=== PATIENT | male | born 1960 | race Caucasian/White ===

== ENCOUNTER 2017-09-13 14:21 | Inpatient (IN) | payer OTHER ==
[2017-09-13] MEDS ORDERED: THIAMINE 100 MG/ML 2 ML VIAL IM STA ×2 (14:38→15:41)
[2017-09-13] MEDS ORDERED: LORazepam 2 MG/ML INJ IV STA ×2 (14:38→15:15)
[2017-09-13] MEDS ORDERED: SODIUM CHLORIDE 0.9% 1,000 ML IV STA ×2 (14:38)
[2017-09-13] MEDS ORDERED: FOLIC ACID 1 MG TAB PO STA (14:38)
[2017-09-13] MEDS ORDERED: MULTIVITAMINS, THERA 1 EACH TAB PO STA (14:38)
[2017-09-13] MEDS ORDERED: PANTOPRAZOLE 40 MG/10 ML VIAL IVP STA (14:39)
[2017-09-13 15:12] LABS: ALT 68 U/L (21-72); AST 174 U/L (17-59); Albumin 3.7 g/dL (3.5-5.0); Alkaline Phosphatase 127 U/L (38-126); Amylase 47 U/L (30-110); Anion Gap 20 mmol/L; Blood Urea Nitrogen 20 mg/dL (9-20); Calcium 8.7 mg/dL (8.4-10.2); Carbon Dioxide 20 mmol/L (22-30); Chloride 100 mmol/L (98-107); Glucose 104 mg/dL (74-99); Lipase 134 U/L (23-300); Potassium 3.7 mmol/L (3.5-5.1); Sodium 140 mmol/L (137-145); Total Bilirubin 1.3 mg/dL (0.2-1.3); Total Protein 6.3 g/dL (6.3-8.2)
[2017-09-13 15:28] LABS: Basophils % (A) 1 %; Eosinophils # (A) 0.1 k/uL (0-0.7); Eosinophils % (A) 2 %; HCT 46.7 % (39.0-53.0); HGB 15.2 gm/dL (13.0-17.5); Lymphocytes # (A) 0.7 k/uL (1.0-4.8); Lymphocytes % (A) 11 %; MCH 34.7 pg (25.0-35.0); MCHC 32.6 g/dL (31.0-37.0); MCV 106.1 fL (80.0-100.0); Macrocytosis Slight; Mean Platelet Volume 7.2; Monocytes # (A) 0.4 k/uL (0-1.0); Monocytes % (A) 5 %; Neutrophils # (A) 5.5 k/uL (1.3-7.7); Neutrophils % (A) 81 %; Platelet Count 103 k/uL (150-450); RDW 12.5 % (11.5-15.5); WBC 6.8 k/uL (3.8-10.6)
--- NOTE | 2017-09-13 15:40 | ED ---
Alcohol HPI - General Chief Complaint: Alcohol Stated Complaint: Hypertensive Time Seen by Provider: 09/13/17 14:23 Source: patient, EMS Mode of arrival: EMS Limitations: no limitations - History of Present Illness Initial Comments: He stated he was sober for the longest time but then now June time he started drinking again he has been drinking pretty regularly. Healthy for the last few days he has not been able to eat well he has not been able to keep anything down he drinks and he throws up and then a he presented with the shaking and tremors he is afraid he is can be going into DTs. He denies any headache no chest pain no shortness of breath does have any epigastric pain no abdominal pain no frequency urgency dysuria no symptoms of TIA or CVA - Related Data Home Medications Medication Instructions Recorded Confirmed Acetaminophen/Diphenhydramine 1 tab PO HS PRN 09/13/17 09/13/17 [Tylenol PM 500-25mg] Aspirin 81 mg PO DAILY 09/13/17 09/13/17 Allergies Allergy/AdvReac Type Severity Reaction Status Date / Time No Known Allergies Allergy Verified 09/13/17 14:48 Review of Systems ROS Statement: Those systems with pertinent positive or pertinent negative responses have been documented in the HPI. ROS Other: All systems not noted in ROS Statement are negative. Past Medical History Past Medical History: Rheumatoid Arthritis (RA) Additional Past Medical History / Comment(s): fractured back, ribs, ETOH (use to drink a pint a day, down to 1/2 a pint a day) History of Any Multi-Drug Resistant Organisms: None Reported Past Surgical History: No Surgical Hx Reported Additional Past Surgical History / Comment(s): fluid removed from lung Past Anesthesia/Blood Transfusion Reactions: No Reported Reaction Past Psychological History: No Psychological Hx Reported Smoking Status: Current every day smoker Past Alcohol Use History: Abuse, Daily Past Drug Use History: Marijuana General Exam - General Exam Comments Initial Comments: General: The patient is awake and alert, in moderate distress he is having shakes all over both his hands are somewhat unsteady because of the shakes GCS is 15 Skin: Skin is warm and dry and no rashes or lesions are noted. Eye: Pupils are equal, round and reactive to light, extra-ocular movements are intact; there is normal conjunctiva bilaterally. Ears, nose, mouth and throat: There are moist mucous membranes and no oral lesions. Neck: The neck is supple, there is no tenderness or JVD. Cardiovascular: There is a regular rate and rhythm. Tachycardic at the time of exam his heart rate was 134 Respiratory: To auscultation bilateral, decreased breath sounds bilaterally Gastrointestinal: Soft, non-distended, non-tender abdomen without masses or organomegaly noted. There is no rebound or guarding present. Bowel sounds are unremarkable. Back: There is no tenderness to palpation in the midline. There is no obvious deformity. Musculoskeletal: Normal ROM, no tenderness, There is no pedal edema. There is no calf tenderness or swelling. No cords were appreciated. Neurological: CN II-XII intact, Cranial nerves III through XII are intact. There are no obvious motor or sensory deficits. Coordination appears grossly intact. Speech is normal. Psychiatric: Cooperative, appropriate mood & affect, normal judgment. He is shaking and he is nervous but he denies any suicidal or homicidal ideation Limitations: no limitations Course Vital Signs 09/13/17 14:24 Temperature 99.1 F Pulse Rate 124 H Respiratory 16 Rate O2 Sat by Pulse 99 Oximetry Medical Decision Making - Lab Data Result diagrams: 09/13/17 15:17 09/13/17 14:42 Lab Results 09/13/17 09/13/17 Range/Units 14:42 15:17 WBC 6.8 (3.8-10.6) k/uL RBC 4.40 (4.30-5.90) m/uL Hgb 15.2 (13.0-17.5) gm/dL Hct 46.7 (39.0-53.0) % MCV 106.1 H (80.0-100.0) fL MCH 34.7 (25.0-35.0) pg MCHC 32.6 (31.0-37.0) g/dL RDW 12.5 (11.5-15.5) % Plt Count 103 L (150-450) k/uL Neutrophils % 81 % Lymphocytes % 11 % Monocytes % 5 % Eosinophils % 2 % Basophils % 1 % Neutrophils # 5.5 (1.3-7.7) k/uL Lymphocytes # 0.7 L (1.0-4.8) k/uL Monocytes # 0.4 (0-1.0) k/uL Eosinophils # 0.1 (0-0.7) k/uL Basophils # 0.0 (0-0.2) k/uL Macrocytosis Slight Sodium 140 (137-145) mmol/L Potassium 3.7 (3.5-5.1) mmol/L Chloride 100 (98-107) mmol/L Carbon Dioxide 20 L (22-30) mmol/L Anion Gap 20 mmol/L BUN 20 (9-20) mg/dL Creatinine 0.84 (0.66-1.25) mg/dL Est GFR (MDRD) Af Amer >60 (>60 ml/min/1.73 sqM) Est GFR (MDRD) Non-Af >60 (>60 ml/min/1.73 sqM) Glucose 104 H (74-99) mg/dL Calcium 8.7 (8.4-10.2) mg/dL Total Bilirubin 1.3 (0.2-1.3) mg/dL AST 174 H (17-59) U/L ALT 68 (21-72) U/L Alkaline Phosphatase 127 H (38-126) U/L Total Protein 6.3 (6.3-8.2) g/dL Albumin 3.7 (3.5-5.0) g/dL Amylase 47 (30-110) U/L Lipase 134 (23-300) U/L Critical Care Time Total Critical Care Time: 30 Critical Care Time: 49 years old male has been drinking quite heavily for the last 6-8 weeks, he came in with a lot of shakes and tremors his heart rate was 138 and both UPPER extremities or shaking awful lot, he was very dry eyes mucous membranes are dry and start him on a fluid bolus and Ativan 2 mg IV was giving a did call me his shakes down and then we repeated that about 45 minutes later and he looks a lot better now that he will need to be admitted he would go to Dr. Marino service Disposition Clinical Impression: Alcohol withdrawal Disposition: ADMITTED IP TO THIS [facility] Condition: Good Referrals: None,Stated [Primary Care Provider] - 1-2 days
[2017-09-13] MEDS ORDERED: LORazepam 2 MG/ML INJ IV PRN ×2 (15:41)
[2017-09-13] MEDS ORDERED: NALOXONE 0.4 MG/ML 1 ML VIAL IV PRN (15:42)
[2017-09-13] MEDS ORDERED: ACETAMINOPHEN TAB 500 MG TAB PO PRN (15:47)
[2017-09-13] MEDS: LORazepam 1 MG TAB PO SCH ×2 (16:18→23:59)
[2017-09-13] MEDS ORDERED: diphenhydrAMINE 25 MG CAP PO PRN (16:51)
[2017-09-13] MEDS ORDERED: hydrALAZINE HCL 20 MG/ML 1 ML VIAL IVP STA (16:55)
[2017-09-13] MEDS ORDERED: METOPROLOL TARTRATE 50 MG TAB PO STA (17:00)
[2017-09-13] MEDS: ONDANSETRON 4 MG/2 ML VIAL IVP PRN (21:05)
[2017-09-13] MEDS: METOPROLOL TARTRATE 50 MG TAB PO SCH (21:31)
[2017-09-14] MEDS: METOPROLOL TARTRATE 50 MG TAB PO SCH ×2 (08:25→20:16)
[2017-09-14] MEDS: LORazepam 1 MG TAB PO SCH ×3 (08:25→23:51)
[2017-09-14] MEDS: ONDANSETRON 4 MG/2 ML VIAL IVP PRN (08:29)
[2017-09-14] MEDS: ASPIRIN 81 MG PO SCH (08:50)
[2017-09-14] MEDS ORDERED: PANTOPRAZOLE 40 MG/10 ML VIAL IVP SCH (09:00)
[2017-09-14] MEDS: LORazepam 2 MG/ML INJ IV PRN ×2 (11:15→13:44)
[2017-09-14] MEDS: THIAMINE 100 MG TAB PO SCH ×2 (11:16→16:50)
[2017-09-14 11:50] VITALS: BMI 22.9
[2017-09-14] MEDS ORDERED: INFLUENZA VACCINE (6 MOS+) 60 MCG/0.5 ML SYRINGE IM ONE (14:07)
[2017-09-14] MEDS ORDERED: PNEUMOCOCCAL VACC-PNEUMOVAX 23 25 MCG/0.5 ML VIAL IM ONE (14:07)
--- NOTE | 2017-09-14 15:46 | HP ---
HISTORY AND PHYSICAL CHIEF COMPLAINT: DTs. HISTORY OF PRESENT ILLNESS: This is the first known admission for this 57-year-old white male, chronic alcoholic. He was in a process of trying to slowly wean himself off of alcohol and then went into DTs and came to the emergency room. REVIEW OF SYSTEMS: He has had no focal neurologic deficits, change in vision or hearing, amblyopia, diplopia, chest pain, cough, hemoptysis, heart disease, murmurs, rheumatic fever, hypertension, abdominal pain, nausea, vomiting, hematemesis, melena, hematochezia, colitis, diverticulosis, diverticulitis, hemorrhoids, renal failure, dysuria, frequency, urgency, diabetes, etc. PAST MEDICAL HISTORY: Past medical history, family history, and personal history are unremarkable and noncontributory otherwise. He is on no medication, not allergic to any and he has had no surgery. SOCIAL HISTORY: He smokes about a half pack of cigarettes a day. His alcohol consumption is variable. He had actually stopped some months ago, but then restarted. PHYSICAL EXAM: Blood pressure 163/115 with a pulse of 106, respirations of 35 and he is afebrile. GENERAL: He appeared to be well developed, well nourished, in no acute distress. He was tremulous. Skin color is normal. Skin is warm, dry. Lymph nodes not enlarged. Head, ears, eyes, nose, mouth, and throat were normal and neck veins not distended. Thyroid was not enlarged. Chest is clear to auscultation and percussion. The cardiac exam demonstrated normal sinus rhythm and no murmurs or extra sounds. The abdomen is protuberant, soft, nontender without any visceromegaly or masses. Bowel sounds present. Extremities normal. Neurologically he was tremulous. Neurologically intact otherwise. He is admitted to the hospital with diagnoses: 1. Delirium tremens. 2. Chronic alcoholism. PLAN: 1. Bed rest. 2. IV fluids. 3. CIWA protocol. MMODL / HIWOTN: [id number] /
--- NOTE | 2017-09-14 16:07 | PN ---
PROGRESS NOTE CHIEF COMPLAINT: DTs. HISTORY OF PRESENT ILLNESS: This gentleman is feeling a bit better, but he does feel dizzy. He has had no fever, chills, chest pain, etc. PHYSICAL EXAM: Chest is clear. Cardiac exam is normal. The abdomen is slightly protuberant. IMPRESSION: Delirium tremens. PLAN: Continue on protocol. MMODL / HIWOTN: [id number] /
[2017-09-14] MEDS: NICOTINE 14MG/24HR PATCH TRANSDERM SCH (18:03)
[2017-09-14] MEDS: KETOROLAC 30 MG/ML 1 ML VIAL IVP PRN (20:16)
[2017-09-15] MEDS: KETOROLAC 30 MG/ML 1 ML VIAL IVP PRN (03:29)
[2017-09-15] MEDS: LORazepam 2 MG/ML INJ IV PRN (03:29)
[2017-09-15] MEDS ORDERED: PANTOPRAZOLE 40 MG TABLET PO SCH (07:30)
[2017-09-15 08:54] VITALS: RESP 18; TEMP 98.2
[2017-09-15] MEDS: ASPIRIN 81 MG PO SCH (09:18)
[2017-09-15] MEDS: LORazepam 1 MG TAB PO SCH (09:18)
[2017-09-15] MEDS: NICOTINE 14MG/24HR PATCH TRANSDERM SCH (09:18)
[2017-09-15] MEDS: METOPROLOL TARTRATE 50 MG TAB PO SCH (09:18)
[2017-09-15 11:18] VITALS: PULSE 87
[2017-09-15 11:38] VITALS: BP 151/107
--- NOTE | 2017-09-15 14:35 | DS ---
DISCHARGE SUMMARY CHIEF COMPLAINT: DTs. HISTORY OF PRESENT ILLNESS AND PHYSICAL EXAM: Details of this man's history and physical can be found in the initial workup. LABORATORY STUDIES: While he was in a hospital he had laboratory studies, the details which can be found in the laboratory section of his chart. COURSE IN HOSPITAL: After admission he was placed on bedrest, started on intravenous fluids and CIWA protocol. He remained shaky and somewhat lethargic for the first 48 hours and then he began to improve. It was felt that he could go home on the and he will be followed up in the office in several days. FINAL DIAGNOSES: 1. Delirium tremens. 2. Chronic alcoholism. OPERATIONS: None. CONSULTATION: None. He is improved. MMODL / IJN: [id number] /
== END 2017-09-15 12:14 | disposition home or self-care (01) | DRG 897 ==
LOC: EC 14:21 → 4MS4W 15:42
PROVIDERS: ADMIT Family Medicine; ATTEND Family Medicine
PROC: 3E0234Z Introduction of Serum, Toxoid and Vaccine into Muscle, Percutaneous Approach (ICD-10-PCS; principal; 2017-09-14)
PROC: 3E0234Z Introduction of Serum, Toxoid and Vaccine into Muscle, Percutaneous Approach (ICD-10-PCS; 2017-09-14)
DX: F10.231 Alcohol dependence with withdrawal delirium (principal); F17.210 Nicotine dependence, cigarettes, uncomplicated; M06.9 Rheumatoid arthritis, unspecified; Z23 Encounter for immunization; Z79.82 Long term (current) use of aspirin; Z87.81 Personal history of (healed) traumatic fracture
CPT/HCPCS: 36415; 80053; 82075; 82150; 83690; 85025; 90686; 90732; 96361; 96372; 96374; 96375; 99285

== ENCOUNTER 2018-07-17 17:16 | Inpatient (IN) | payer OTHER ==
[2018-07-17] MEDS ORDERED: LORazepam 2 MG/ML INJ IM STA (17:56)
[2018-07-17] MEDS ORDERED: SODIUM CHLORIDE 0.9% 1,000 ML IV ONE ×2 (17:56→19:24)
[2018-07-17] MEDS ORDERED: SODIUM CHLORIDE 0.9% 1,000 ML with MVI, ADULT NO.4 WITH VIT K 10 ML, THIAMINE 100 MG, F... IV ONE ×4 (18:00)
--- NOTE | 2018-07-17 18:05 | ED ---
General Adult HPI - General Chief complaint: Alcohol Stated complaint: withdrawals Time Seen by Provider: 07/17/18 17:20 Source: EMS, RN notes reviewed Mode of arrival: EMS Limitations: no limitations - History of Present Illness Initial comments: This is a 58-year-old male who presents emergency Department stating that he is an alcoholic. Patient states he had his last drink 10:00 Sunday night. Patient states she going through withdrawals. Patient states he's been shaky and nonstop vomiting anytime he tries to eat or drink. Patient states he is coming in today because the believes is getting dehydrated and can't keep anything down. Patient states in the past he has stopped on his own but this is not working out this time. Patient denies headache patient denies any numbness or weakness. Patient denies any chest pain or palpitations. Patient denies any difficulty breathing shortness of breath. Patient denies abdominal pain patient denies any fever chills or cough. - Related Data Home Medications Medication Instructions Recorded Confirmed Aspirin 81 mg PO DAILY 09/13/17 07/17/18 Acetaminophen [Tylenol Extra 500 mg PO Q6H PRN 07/17/18 07/17/18 Strength] Allergies Allergy/AdvReac Type Severity Reaction Status Date / Time No Known Allergies Allergy Verified 07/17/18 18:22 Review of Systems ROS Statement: Those systems with pertinent positive or pertinent negative responses have been documented in the HPI. ROS Other: All systems not noted in ROS Statement are negative. Past Medical History Past Medical History: GERD/Reflux, Pneumonia, Rheumatoid Arthritis (RA) Additional Past Medical History / Comment(s): PT STATED "WAS SOBER FOR 9 MONTHS THEN AT [place] STARTED TO DRINK AGAIN. DRANK 1/2 PINT OF VODKA DAILY FOR ABOUT A MONTH THEN SWITCHED TO "BOXED WINE" ABOUT HALF A BOX PER DAY THEN TRIED TO QUIT COLD TURKEY FEW DAYS AGO. THIS AM WAS FEELING SO BAD HE ATTEMPTED TO DRINK SOME VODKA BUT NOTHING STAYED DOWN.". fractured back, ribs, ETOH ABUSE/ WITHDRAWLS PLEURISY History of Any Multi-Drug Resistant Organisms: None Reported Past Surgical History: No Surgical Hx Reported Additional Past Surgical History / Comment(s): fluid removed from lung Past Anesthesia/Blood Transfusion Reactions: No Reported Reaction Past Psychological History: No Psychological Hx Reported Smoking Status: Current every day smoker Past Alcohol Use History: Abuse Past Drug Use History: None Reported - Past Family History Father Family Medical History: Cancer Additional Family Medical History / Comment(s): BRAIN CANCER AT AGE 62 Mother Additional Family Medical History / Comment(s): ABD/BOWEL TUMOR HAD , COLOSTOMY , SCHIZOPHRENIA General Exam - General Exam Comments Initial Comments: GENERAL: Patient is well-developed and well-nourished. Patient is nontoxic and well- hydrated and is in mild distress. Patient has slight tremors. ENT: Neck is soft and supple. Oropharynx is clear. Moist mucous membranes. Neck has full range of motion without eliciting any pain. EYES: The sclera were anicteric and conjunctiva were pink and moist. Extraocular movements were intact and pupils were equal round and reactive to light. Eyelids were unremarkable. PULMONARY: Unlabored respirations. Good breath sounds bilaterally. No audible rales rhonchi or wheezing was noted. CARDIOVASCULAR: Patient's heart rate is tachycardic in the 120 beats a minute. ABDOMEN: Soft and nontender with normal bowel sounds. No palpable organomegaly was noted. There is no palpable pulsatile mass. SKIN: Skin is clear with no lesions or rashes and otherwise unremarkable. NEUROLOGIC: Patient is alert and oriented x3. Cranial nerves II through XII are grossly intact. Motor and sensory are also intact. Normal speech, volume and content. Symmetrical smile. MUSCULOSKELETAL: Normal extremities with adequate strength and full range of motion. PSYCHIATRIC: Normal psychiatric evaluation. Limitations: no limitations Course Vital Signs 07/17/18 07/17/18 07/17/18 17:18 17:27 19:03 Temperature 99.2 F Pulse Rate 114 H 101 H Pulse Rate [ 120 H Left Sitting Pulse Oximetery ] Respiratory 16 18 Rate Blood Pressure 150/126 147/111 O2 Sat by Pulse 99 95 Oximetry Medical Decision Making - Medical Decision Making EKG shows sinus tachycardia with occasional PAC at 112 bpm LA interval 140 QRS is 86 QT interval 356 QTC is 45. Patient's EKG shows no ST segment elevation or depression or T wave abnormalities are noted. Patient is here for alcohol withdrawal. Patient's magnesium was 0.8 may replaced with 2 g. I also gave the patient a liter of fluid 2 mg of Ativan as well as banana bag at 200 mL an hour. Patient was feeling considerably better however because he was withdrawing and had a little magnesium we decided to keep the patient in the hospital I spoke with Dr. Bello and he agreed admitted the patient wrote admitting orders and put him on [facility] protocol - Lab Data Result diagrams: 07/17/18 17:36 07/17/18 17:36 Lab Results 07/17/18 07/17/1818 Range/Units 17:36 17:36 17:36 WBC 6.4 (3.8-10.6) k/uL RBC 4.04 L (4.30-5.90) m/uL Hgb 14.1 (13.0-17.5) gm/dL Hct 42.8 (39.0-53.0) % MCV 105.9 H (80.0-100.0) fL MCH 34.8 (25.0-35.0) pg MCHC 32.9 (31.0-37.0) g/dL RDW 14.5 (11.5-15.5) % Plt Count 95 L (150-450) k/uL Neutrophils % 82 % Lymphocytes % 11 % Monocytes % 5 % Eosinophils % 1 % Basophils % 1 % Neutrophils # 5.2 (1.3-7.7) k/uL Lymphocytes # 0.7 L (1.0-4.8) k/uL Monocytes # 0.3 (0-1.0) k/uL Eosinophils # 0.1 (0-0.7) k/uL Basophils # 0.0 (0-0.2) k/uL Macrocytosis Moderate PT (9.0-12.0) sec INR (<1.2) APTT (22.0-30.0) sec Sodium 136 L (137-145) mmol/L Potassium 3.5 (3.5-5.1) mmol/L Chloride 97 L (98-107) mmol/L Carbon Dioxide 27 (22-30) mmol/L Anion Gap 12 mmol/L BUN 11 (9-20) mg/dL Creatinine 0.70 (0.66-1.25) mg/dL Est GFR (CKD-EPI)AfAm >90 (>60 ml/min/1.73 sqM) Est GFR (CKD-EPI)NonAf >90 (>60 ml/min/1.73 sqM) Glucose 84 (74-99) mg/dL Calcium 8.6 (8.4-10.2) mg/dL Magnesium 0.8 L* (1.6-2.3) mg/dL Total Bilirubin 1.8 H (0.2-1.3) mg/dL AST 86 H (17-59) U/L ALT 38 (21-72) U/L Alkaline Phosphatase 98 (38-126) U/L Total Creatine Kinase 59 (55-170) U/L CK-MB (CK-2) 0.8 (0.0-2.4) ng/mL CK-MB (CK-2) Rel Index 1.4 Troponin I 0.026 (0.000-0.034) ng/mL Total Protein 6.4 (6.3-8.2) g/dL Albumin 3.9 (3.5-5.0) g/dL Serum Alcohol <10 mg/dL 07/17/18 Range/Units 17:36 WBC (3.8-10.6) k/uL RBC (4.30-5.90) m/uL Hgb (13.0-17.5) gm/dL Hct (39.0-53.0) % MCV (80.0-100.0) fL MCH (25.0-35.0) pg MCHC (31.0-37.0) g/dL RDW (11.5-15.5) % Plt Count (150-450) k/uL Neutrophils % % Lymphocytes % % Monocytes % % Eosinophils % % Basophils % % Neutrophils # (1.3-7.7) k/uL Lymphocytes # (1.0-4.8) k/uL Monocytes # (0-1.0) k/uL Eosinophils # (0-0.7) k/uL Basophils # (0-0.2) k/uL Macrocytosis PT 12.0 (9.0-12.0) sec INR 1.2 H (<1.2) APTT 24.0 (22.0-30.0) sec Sodium (137-145) mmol/L Potassium (3.5-5.1) mmol/L Chloride (98-107) mmol/L Carbon Dioxide (22-30) mmol/L Anion Gap mmol/L BUN (9-20) mg/dL Creatinine (0.66-1.25) mg/dL Est GFR (CKD-EPI)AfAm (>60 ml/min/1.73 sqM) Est GFR (CKD-EPI)NonAf (>60 ml/min/1.73 sqM) Glucose (74-99) mg/dL Calcium (8.4-10.2) mg/dL Magnesium (1.6-2.3) mg/dL Total Bilirubin (0.2-1.3) mg/dL AST (17-59) U/L ALT (21-72) U/L Alkaline Phosphatase (38-126) U/L Total Creatine Kinase (55-170) U/L CK-MB (CK-2) (0.0-2.4) ng/mL CK-MB (CK-2) Rel Index Troponin I (0.000-0.034) ng/mL Total Protein (6.3-8.2) g/dL Albumin (3.5-5.0) g/dL Serum Alcohol mg/dL Disposition Clinical Impression: Hypomagnesemia, Alcohol withdrawal syndrome Disposition: ADMITTED IP TO THIS HOSP Referrals: Kirill Marino MD [Primary Care Provider] - 1-2 days Time of Disposition: 19:24
[2018-07-17] MEDS ORDERED: LORazepam 2 MG/ML INJ IV STA (18:19)
[2018-07-17 18:30] LABS: Basophils % (A) 1 %; Eosinophils # (A) 0.1 k/uL (0-0.7); Eosinophils % (A) 1 %; HCT 42.8 % (39.0-53.0); HGB 14.1 gm/dL (13.0-17.5); Lymphocytes # (A) 0.7 k/uL (1.0-4.8); Lymphocytes % (A) 11 %; MCH 34.8 pg (25.0-35.0); MCHC 32.9 g/dL (31.0-37.0); MCV 105.9 fL (80.0-100.0); Macrocytosis Moderate; Mean Platelet Volume 7.7; Monocytes # (A) 0.3 k/uL (0-1.0); Monocytes % (A) 5 %; Neutrophils # (A) 5.2 k/uL (1.3-7.7); Neutrophils % (A) 82 %; RBC 4.04 m/uL (4.30-5.90); RDW 14.5 % (11.5-15.5); WBC 6.4 k/uL (3.8-10.6)
[2018-07-17 18:32] LABS: Platelet Count 95 k/uL (150-450)
[2018-07-17 18:37] LABS: ALT 38 U/L (21-72); AST 86 U/L (17-59); Albumin 3.9 g/dL (3.5-5.0); Alcohol <10 mg/dL; Alkaline Phosphatase 98 U/L (38-126); Anion Gap 12 mmol/L; Blood Urea Nitrogen 11 mg/dL (9-20); Calcium 8.6 mg/dL (8.4-10.2); Carbon Dioxide 27 mmol/L (22-30); Chloride 97 mmol/L (98-107); Glucose 84 mg/dL (74-99); Potassium 3.5 mmol/L (3.5-5.1); Sodium 136 mmol/L (137-145); Total Bilirubin 1.8 mg/dL (0.2-1.3); Total Protein 6.4 g/dL (6.3-8.2)
[2018-07-17 18:41] LABS: INR 1.2 (<1.2)
[2018-07-17 18:42] LABS: Magnesium 0.8 mg/dL (1.6-2.3)
[2018-07-17 19:00] LABS: Creatine Kinase MB 0.8 ng/mL (0.0-2.4); Troponin I 0.026 ng/mL (0.000-0.034)
[2018-07-17] MEDS ORDERED: ONDANSETRON 4 MG/2 ML VIAL IVP PRN (19:25)
[2018-07-17] MEDS ORDERED: THIAMINE 100 MG/ML 2 ML VIAL IM STA (19:25)
[2018-07-17] MEDS ORDERED: LORazepam 2 MG/ML INJ IV PRN ×3 (19:25)
[2018-07-17] MEDS ORDERED: MAGNESIUM SULFATE-D5W PMX 1 GM in DEXTROSE/WATER 1 100ML.BAG IVPB STA (19:59)
[2018-07-17 21:02] VITALS: BMI 22.9
[2018-07-17] MEDS ORDERED: LISINOPRIL 20 MG TAB PO STA (21:28)
[2018-07-17] MEDS: cloNIDine HCL 0.2 MG TAB PO SCH (22:34)
[2018-07-18] MEDS ORDERED: Magnesium Replacement Protocol 1 EACH MISC MISCELLANE PRN (00:43)
[2018-07-18] MEDS ORDERED: Potassium Replacement Protocol 1 EACH MISC MISCELLANE PRN (00:47)
[2018-07-18] MEDS: POTASSIUM CHLORIDE ER 20 MEQ TAB.ER PO SCH ×2 (01:05→02:07)
[2018-07-18] MEDS: ACETAMINOPHEN TAB 500 MG TAB PO PRN ×3 (01:05→21:00)
[2018-07-18] MEDS: MAGNESIUM SULFATE-D5W PMX 1 GM in DEXTROSE/WATER 1 100ML.BAG IVPB SCH ×3 (01:06→03:49)
[2018-07-18] MEDS: cloNIDine HCL 0.2 MG TAB PO SCH ×3 (07:02→21:01)
[2018-07-18 07:56] LABS: Magnesium 1.9 mg/dL (1.6-2.3); Potassium 3.5 mmol/L (3.5-5.1)
[2018-07-18] MEDS: THIAMINE 100 MG TAB PO SCH ×2 (11:35→16:26)
[2018-07-18] MEDS: NICOTINE 21MG/24HR PATCH TRANSDERM SCH (16:13)
--- NOTE | 2018-07-18 17:49 | HP ---
HISTORY AND PHYSICAL CHIEF COMPLAINT: Acute alcohol intoxication and seizure with hypomagnesemia. HISTORY OF PRESENT ILLNESS: This is another admission for this 58-year-old white male. I have seen him in the past, but not for years. He has started to drink heavily, withdrew and had a seizure and presented to the emergency room. REVIEW OF SYSTEMS: He is not complaining of any focal neurologic deficits, tremors, difficulty with vision or hearing, diplopia, etc. He has had no chest pain, shortness of breath, abdominal pain, heart disease, renal problems, diabetes, etc. Past medical history, family history and personal and social histories are all otherwise unremarkable and noncontributory. He is not on any medication. He does smoke. PHYSICAL EXAM: Blood pressure 146/90 with a pulse of 88, respirations of 36 and he is afebrile. GENERAL: He appeared to be well developed, well nourished, in no acute distress. Skin color is normal. Skin is warm, dry. Lymph nodes not enlarged. Head, ears, eyes, nose, mouth, and throat were normal. Neck veins not distended. Thyroid not enlarged. Chest is clear. Cardiac exam is normal. Abdomen is soft, nontender. Extremities are normal. IMPRESSION: 1. Acute alcohol intoxication. 2. Chronic alcoholism. 3. Seizure disorder. 4. Hypomagnesemia. PLAN: 1. Bed rest. 2. IV fluids. 3. Seizure precautions. 4. Correct hypomagnesemia. MMODL / IJN: [id number] /
--- NOTE | 2018-07-18 17:49 | PN ---
PROGRESS NOTE CHIEF COMPLAINT: Acute alcohol intoxication and seizure. HISTORY OF PRESENT ILLNESS: This gentleman is doing fine this morning. He denies any pain, shortness of breath, chest pain, etc. PHYSICAL EXAM: He has no tremors at this time. He has no diplopia. Chest is clear. Cardiac exam is normal. IMPRESSION: 1. Acute alcohol intoxication. 2. Alcohol withdrawal seizure. 3. Alcoholism. 4. Hypomagnesemia. PLAN: Continue on current program and hold for at least another 24 hours. MMODL / IJN: [id number] /
[2018-07-19] MEDS: ACETAMINOPHEN TAB 500 MG TAB PO PRN ×2 (05:54→12:26)
[2018-07-19] MEDS: THIAMINE 100 MG TAB PO SCH ×2 (08:11→15:08)
[2018-07-19] MEDS: NICOTINE 21MG/24HR PATCH TRANSDERM SCH (08:11)
[2018-07-19] MEDS: cloNIDine HCL 0.2 MG TAB PO SCH ×2 (08:11→15:08)
[2018-07-19] MEDS ORDERED: NICOTINE 21MG/24HR PATCH TRANSDERM SCH (09:00)
[2018-07-19] MEDS: MAGNESIUM SULFATE-D5W PMX 1 GM in DEXTROSE/WATER 1 100ML.BAG IVPB SCH ×3 (12:23→15:04)
[2018-07-19 15:36] VITALS: BP 135/88; PULSE 66; RESP 19; TEMP 98.8
--- NOTE | 2018-07-19 20:56 | DS ---
DISCHARGE SUMMARY CHIEF COMPLAINT: Acute alcohol intoxication and impending DTs with hypomagnesemia. HISTORY OF PRESENT ILLNESS AND PHYSICAL EXAMINATION: Details of this man's history and physical can be found in the initial workup. COURSE IN THE HOSPITAL: After admission he was placed on bedrest, started on intravenous fluids and CIWA protocol. He was watched for DTs. He was stable and doing well and he was having no problems on 07/19. It was felt that he could go home. He will be transfused with magnesium one more time and he will follow up in the office. FINAL DIAGNOSES: 1. Acute alcohol intoxication. 2. Chronic alcoholism. 3. Impending delirium tremens. 4. Hypomagnesemia. OPERATIONS: None. CONSULTATIONS: None. He is improved. MMCURTL / HIWOTN: [id number] /
[2018-07-19] MEDS ORDERED: cloNIDine HCL 0.2 MG TAB PO SCH (22:00)
== END 2018-07-19 18:09 | disposition home or self-care (01) | DRG 897 ==
LOC: EC 17:16 → 4SSUR 19:24
PROVIDERS: ADMIT Family Medicine; ATTEND Family Medicine
DX: F10.231 Alcohol dependence with withdrawal delirium (principal); F10.229 Alcohol dependence with intoxication, unspecified; E83.42 Hypomagnesemia; E86.0 Dehydration; F17.200 Nicotine dependence, unspecified, uncomplicated; K21.9 Gastro-esophageal reflux disease without esophagitis; M06.9 Rheumatoid arthritis, unspecified; Z79.82 Long term (current) use of aspirin; Z80.8 Family history of malignant neoplasm of other organs or systems; Z81.8 Family history of other mental and behavioral disorders
CPT/HCPCS: 36415; 80053; 80320; 82550; 82553; 83735; 84132; 84484; 85025; 85610; 85730; 93005; 94760

== ENCOUNTER 2022-08-01 01:06 | Inpatient (IN) | payer OTHER ==
[2022-08-01] MEDS ORDERED: SODIUM CHLORIDE 0.9% 500 ML 500 ML IV STA (01:08)
[2022-08-01] MEDS ORDERED: SODIUM CHLORIDE 0.9% 1,000 ML IV STA ×2 (01:08)
--- NOTE | 2022-08-01 01:09 | ED ---
Alcohol HPI - General Stated Complaint: ETOH Time Seen by Provider: 08/01/22 01:08 Source: RN notes reviewed, old records reviewed Mode of arrival: EMS Limitations: altered mental status - History of Present Illness Initial Comments: This is a 62-year-old male to the emergency department for evaluation patient is brought in today for evaluation of back pain with alcoholism and alcohol abuse. Patient also having depression issues with pending homelessness. Patient has no other drug. Patient does feel lightheaded dizzy and weak does admit to depression. Patient does have history of alcohol abuse today. MD Complaint: alcohol intoxication Last Drink: just [employer] -: minute(s) Previous Visits for Alcohol Intoxication?: Yes Recent Trauma: Yes Associated Symptoms: nausea, vomiting, other (back pain) Chronic Alcohol Use: Yes - Related Data Home Medications Medication Instructions Recorded Confirmed No Known Home Medications 08/01/22 08/01/22 Allergies Allergy/AdvReac Type Severity Reaction Status Date / Time No Known Allergies Allergy Verified 08/01/22 06:50 Review of Systems ROS Statement: Those systems with pertinent positive or pertinent negative responses have been documented in the HPI. ROS Other: All systems not noted in ROS Statement are negative. Past Medical History Past Medical History: GERD/Reflux, Pneumonia, Rheumatoid Arthritis (RA) Additional Past Medical History / Comment(s): PT STATED "WAS SOBER FOR 9 MONTHS THEN AT [place] STARTED TO DRINK AGAIN. DRANK 1/2 PINT OF VODKA DAILY FOR ABOUT A MONTH THEN SWITCHED TO "BOXED WINE" ABOUT HALF A BOX PER DAY THEN TRIED TO QUIT COLD TURKEY FEW DAYS AGO. THIS AM WAS FEELING SO BAD HE ATTEMPTED TO DRINK SOME VODKA BUT NOTHING STAYED DOWN.". fractured back, ribs, ETOH ABUSE/WITHDRAWLS PLEURISY History of Any Multi-Drug Resistant Organisms: None Reported Past Surgical History: No Surgical Hx Reported Additional Past Surgical History / Comment(s): fluid removed from lung Past Anesthesia/Blood Transfusion Reactions: No Reported Reaction Past Psychological History: No Psychological Hx Reported Additional Psychological History / Comment(s): PT LIVES AT [facility]. DOES'NT DRIVE,WALKS TO SHOPPING CENTER [place]BY. Past Alcohol Use History: Abuse Additional Past Alcohol Use History / Comment(s): STARTED SMOKING AT AGE 13 USED TO SMOKE A PACK PER DAY BUT CURRENTLY ROLLS HIS OWN DOWN TO 5 PER DAY Past Drug Use History: None Reported - Past Family History Father Family Medical History: Cancer Additional Family Medical History / Comment(s): BRAIN CANCER AT AGE 62 Mother Additional Family Medical History / Comment(s): ABD/BOWEL TUMOR HAD , COLOSTOMY, SCHIZOPHRENIA General Exam General appearance: appears intoxicated, anxious Head exam: Present: atraumatic, normocephalic, normal inspection Eye exam: Present: normal appearance, PERRL, EOMI. Absent: scleral icterus, conjunctival injection, periorbital swelling ENT exam: Present: normal exam, mucous membranes moist Neck exam: Present: normal inspection. Absent: tenderness, meningismus, lymphadenopathy Respiratory exam: Present: normal lung sounds bilaterally. Absent: respiratory distress, wheezes, rales, rhonchi, stridor Cardiovascular Exam: Present: regular rate, normal rhythm, normal heart sounds. Absent: systolic murmur, diastolic murmur, rubs, gallop, clicks GI/Abdominal exam: Present: soft, normal bowel sounds. Absent: distended, tenderness, guarding, rebound, rigid Extremities exam: Present: normal inspection, full ROM, normal capillary refill. Absent: tenderness, pedal edema, joint swelling, calf tenderness Back exam: Present: normal inspection Neurological exam: Present: alert, oriented X3, CN II-XII intact Psychiatric exam: Present: normal affect, normal mood Skin exam: Present: warm, dry, intact, normal color. Absent: rash Course Vital Signs 08/01/22 08/01/22 08/01/22 01:39 04:00 07:00 Temperature 98.7 F Pulse Rate 81 83 Pulse Rate [ Pulse Oximetery ] Respiratory 16 16 18 Rate Blood Pressure 169/109 147/99 Blood Pressure 139/87 [Left Arm] Blood Pressure [Right Arm] O2 Sat by Pulse 81 L 98 98 Oximetry 08/01/22 08/01/22 08/01/22 14:00 15:00 20:00 Temperature 97.8 F 99.1 F Pulse Rate Pulse Rate [ 90 Pulse Oximetery ] Respiratory 18 17 16 Rate Blood Pressure Blood Pressure 155/92 [Left Arm] Blood Pressure 154/84 [Right Arm] O2 Sat by Pulse 96 96 Oximetry - Reevaluation(s) Reevaluation #1: 08/01/22 Medical record is reviewed Reevaluation #2: 08/01/22 Patient has no improvement in symptoms here in the ER Reevaluation #3: 08/01/22 Patient informed results and questions have been answered Reevaluation #4: 08/01/22 Differential Back Pain: Strain, zoster, cauda equina syndrome, epidural abscess, vertebral osteomyelitis, discitis, fracture, subluxation, disc herniation, DJD, spinal stenosis, dissection, AAA, pancreatitis, peptic ulcer disease, pyelonephritis, kidney stone, this is not meant to be an all-inclusive list. Reevaluation #5: 08/01/22 Was pt. sent in by a medical professional or institution? @ -no Did you speak to anyone other than the patient for history? @ -EMS Did you review nursing and triage notes? @ -agree add back pain complaint Were old charts reviewed? @ -no Differential Diagnosis? @ -noted prior EKG interpreted by me (3pts min.)? @ -yes X-rays interpreted by me (1pt min.)? @ -[none] CT interpreted by me (1pt min.)? @ -[none] U/S interpreted by me (1pt. min.)? @ -[none] What testing was considered but not performed? (CT, X-rays, U/S, labs)? Why? @ consider imaging for back pain will continue evaluation as inpatient What meds were considered but not given? Why? @ -pain control Did you discuss the management of the patient with other professionals? @ -no Did you reconcile home meds? @ -[none] Was smoking cessation discussed for >3mins.? @ -[none] Was critical care preformed (if so, how long)? @ -[none] Were there social determinants of health that impacted care today? How? (Homelessness, low income, unemployed, alcoholism, drug addiction, transportation, low edu. Level, literacy, decrease access to med. care, detention, rehab)? @ -homelessness, depression, ETOH Was there de-escalation of care discussed even if they declined? (Discuss DNR or withdrawal of care, Hospice)? @ -no What co-morbidities impacted this encounter? (DM, HTN, Smoking, COPD, CAD, Cancer, CVA, Hep., AIDS, mental health diagnosis, sleep apnea, morbid obesity)? @ -no Was patient admitted / discharged? @ -admission Undiagnosed new problem with uncertain prognosis? @ -[none] Drug Therapy requiring intensive monitoring for toxicity (Heparin, Nitro, Insulin, Cardizem)? @ -[none] Were any procedures done? @ -[none] Diagnosis/symptom? @ -back pain, ETOH Acute, or Chronic, or Acute on Chronic? @ -AoC Uncomplicated (without systemic symptoms) or Complicated (systemic symptoms)? @ -uncomplicated Side effects of treatment? @ -[none] Exacerbation, Progression, or Severe Exacerbation] @ -[no] Poses a threat to life or bodily function? @ -[no] - Consultations Consultation #1: Spoke with admitting physician who agrees to admit this patient, Dr. Marino Medical Decision Making - Medical Decision Making 62 male to be admitted for significant alcohol intoxication, patient does occasionally complaining of back pain throughout ER stay. Patient will be provided with replacement pain control if needed monitor for possible alcohol withdrawal symptoms - Lab Data Result diagrams: 08/01/22 01:30 08/01/22 01:30 Lab Results 08/01/22 08/01/22 Range/Units 01:30 01:30 WBC 5.4 (3.8-10.6) k/uL RBC 4.17 L (4.30-5.90) m/uL Hgb 14.1 (13.0-17.5) gm/dL Hct 41.9 (39.0-53.0) % MCV 100.5 H (80.0-100.0) fL MCH 33.9 (25.0-35.0) pg MCHC 33.8 (31.0-37.0) g/dL RDW 12.5 (11.5-15.5) % Plt Count 269 (150-450) k/uL MPV 8.3 Neutrophils % 53 % Lymphocytes % 33 % Monocytes % 5 % Eosinophils % 6 % Basophils % 2 % Neutrophils # 2.9 (1.3-7.7) k/uL Lymphocytes # 1.8 (1.0-4.8) k/uL Monocytes # 0.3 (0-1.0) k/uL Eosinophils # 0.3 (0-0.7) k/uL Basophils # 0.1 (0-0.2) k/uL Sodium 146 H (137-145) mmol/L Potassium 3.8 (3.5-5.1) mmol/L Chloride 110 H (98-107) mmol/L Carbon Dioxide 26 (22-30) mmol/L Anion Gap 10 mmol/L BUN 14 (9-20) mg/dL Creatinine 0.71 (0.66-1.25) mg/dL Est GFR (CKD-EPI)AfAm >90 (>60 ml/min/1.73 sqM) Est GFR (CKD-EPI)NonAf >90 (>60 ml/min/1.73 sqM) Glucose 89 (74-99) mg/dL Calcium 8.8 (8.4-10.2) mg/dL Phosphorus 3.6 (2.5-4.5) mg/dL Magnesium 1.2 L (1.6-2.3) mg/dL Total Bilirubin 0.3 (0.2-1.3) mg/dL AST 42 (17-59) U/L ALT 22 (4-49) U/L Alkaline Phosphatase 57 (38-126) U/L Total Protein 6.4 (6.3-8.2) g/dL Albumin 3.9 (3.5-5.0) g/dL Lipase 127 (23-300) U/L Serum Alcohol 332 H* mg/dL Disposition Clinical Impression: Dehydration, severe, Hypomagnesemia, Hypokalemia, Alcoholic intoxication, Alcohol withdrawal syndrome, Back pain, Weakness Disposition: ADMITTED IP TO THIS HOSP Condition: Fair Is patient prescribed a controlled substance at d/c from ED?: No Time of Disposition: 02:15
[2022-08-01 01:41] LABS: Basophils # (A) 0.1 k/uL (0-0.2); Basophils % (A) 2 %; Eosinophils # (A) 0.3 k/uL (0-0.7); Eosinophils % (A) 6 %; HCT 41.9 % (39.0-53.0); HGB 14.1 gm/dL (13.0-17.5); Lymphocytes # (A) 1.8 k/uL (1.0-4.8); Lymphocytes % (A) 33 %; MCH 33.9 pg (25.0-35.0); MCHC 33.8 g/dL (31.0-37.0); MCV 100.5 fL (80.0-100.0); Mean Platelet Volume 8.3; Monocytes # (A) 0.3 k/uL (0-1.0); Monocytes % (A) 5 %; Neutrophils # (A) 2.9 k/uL (1.3-7.7); Neutrophils % (A) 53 %; Platelet Count 269 k/uL (150-450); RBC 4.17 m/uL (4.30-5.90); RDW 12.5 % (11.5-15.5); WBC 5.4 k/uL (3.8-10.6)
[2022-08-01 01:57] LABS: ALT 22 U/L (4-49); AST 42 U/L (17-59); African American GFR (CKD) >90 (>60 ml/min/1.73 sqM); Albumin 3.9 g/dL (3.5-5.0); Alkaline Phosphatase 57 U/L (38-126); Anion Gap 10 mmol/L; Blood Urea Nitrogen 14 mg/dL (9-20); Calcium 8.8 mg/dL (8.4-10.2); Carbon Dioxide 26 mmol/L (22-30); Chloride 110 mmol/L (98-107); Glucose 89 mg/dL (74-99); Lipase 127 U/L (23-300); Magnesium 1.2 mg/dL (1.6-2.3); Non-African American GFR(CKD) >90 (>60 ml/min/1.73 sqM); Phosphorus 3.6 mg/dL (2.5-4.5); Potassium 3.8 mmol/L (3.5-5.1); Sodium 146 mmol/L (137-145); Total Bilirubin 0.3 mg/dL (0.2-1.3); Total Protein 6.4 g/dL (6.3-8.2)
[2022-08-01 02:08] LABS: Alcohol 332 mg/dL
[2022-08-01] MEDS ORDERED: MAGNESIUM OXIDE 400 MG TAB PO STA ×2 (02:09)
[2022-08-01] MEDS ORDERED: POTASSIUM BICARBONATE/CIT AC 20 MEQ TABLET.EFF PO STA ×2 (02:09)
[2022-08-01] MEDS ORDERED: NALOXONE 0.4 MG/ML 1 ML VIAL IV PRN (02:12)
[2022-08-01] MEDS ORDERED: LORazepam 2 MG/ML INJ IV PRN ×3 (02:12)
[2022-08-01] MEDS ORDERED: THIAMINE 100 MG/ML 2 ML VIAL IM STA (02:12)
[2022-08-01] MEDS ORDERED: chlordiazePOXIDE 25 MG CAP PO PRN (02:12)
[2022-08-01] MEDS ORDERED: ONDANSETRON 4 MG/2 ML VIAL IVP PRN (02:12)
[2022-08-01] MEDS ORDERED: MORPHINE SULFATE 4 MG/ML SYRINGE IV PRN (02:12)
[2022-08-01] MEDS: SODIUM CHLORIDE 0.9% 1,000 ML IV SCH ×3 (03:24→21:13)
--- NOTE | 2022-08-01 21:57 | HP ---
HISTORY AND PHYSICAL CHIEF COMPLAINT: Acute alcohol intoxication. HISTORY OF PRESENT ILLNESS: This is another admission for this 62-year-old white male, who presented to the emergency room intoxicated and is admitted for detox. REVIEW OF SYSTEMS: Not reliably obtained. Past medical history, family history, personal and social histories essentially unremarkable. He has not been to the office in 2 to 3 years. At that time, he was taking clonidine for blood pressure, but has not been seen since. PHYSICAL EXAMINATION: VITAL SIGNS: Blood pressure 140/90, pulse of 92, respirations of 36, he is afebrile. GENERAL: He appeared to be somewhat disheveled and in no acute distress. SKIN: Dry. HEAD, EARS, EYES, NOSE, MOUTH AND THROAT: Normal. NECK: Neck veins are not distended. Thyroid was not enlarged. CHEST: Clear. CARDIAC: Normal with tachycardia. ABDOMEN: Soft and nontender. EXTREMITIES: Normal. NEUROLOGICAL: He is intact. IMPRESSION: 1. Acute alcohol intoxication. 2. Alcoholism. 3. Delirium tremens. PLAN: 1. Bedrest. 2. IV fluids. 3. Monitor for DTs. MMODL / IJN: [id number] /
[2022-08-02] MEDS: SODIUM CHLORIDE 0.9% 1,000 ML IV SCH ×3 (01:50→17:09)
[2022-08-02] MEDS: THIAMINE 100 MG TAB PO SCH (08:47)
[2022-08-02 10:23] LABS: Basophils # (A) 0.03 X 10*3/uL (0.00-0.10); Basophils % (A) 0.6 %; Eosinophils # (A) 0.11 X 10*3/uL (0.04-0.35); Eosinophils % (A) 2.1 %; HGB 11.6 g/dL (13.0-17.0); Immature Grans, Automated 0.4 %; Lymphocytes # (A) 0.76 X 10*3/uL (0.90-5.00); Lymphocytes % (A) 14.7 %; MCHC 33.1 g/dL (32.0-37.0); MCV 99.4 fL (80.0-97.0); Mean Platelet Volume 10.9 fL (9.5-12.2); Monocytes # (A) 0.45 X 10*3/uL (0.20-1.00); Monocytes % (A) 8.7 %; NRBC Per 100 WBC 0 /100 WBCS (0.0-0.0); Neutrophils # (A) 3.81 X 10*3/uL (1.80-7.70); Neutrophils % (A) 73.5 %; Platelet Count 181 X 10*3/uL (140-440); RBC 3.52 X 10*6/uL (4.40-5.60); RDW 12.6 % (11.5-14.5); WBC 5.18 X 10*3/uL (4.50-10.00)
[2022-08-02 11:24] LABS: Albumin 3.6 g/dL (3.8-4.9); Albumin/Globulin Ratio 2.4 (1.60-3.17); Anion Gap 14.1 mmol/L (10.00-18.00); BUN/Creat Ratio 14.33 Ratio (12.00-20.00); Blood Urea Nitrogen 8.6 mg/dL (9.0-27.0); Calcium 8.1 mg/dL (8.7-10.3); Carbon Dioxide 22.9 mmol/L (20.0-27.5); Globulin 1.5 g/dL (1.6-3.3); Magnesium 1.1 mg/dL (1.5-2.4); Phosphorus 2.1 mg/dL (2.4-5.1); Total Bilirubin 1.1 mg/dL (0.30-1.20); Total Protein 5.1 g/dL (6.2-8.2)
--- NOTE | 2022-08-02 22:06 | PN ---
PROGRESS NOTE CHIEF COMPLAINT: Acute alcohol intoxication and DTs. HISTORY OF PRESENT ILLNESS: This gentleman is doing fairly well. He does not seem to be in DTs at this point. He is complaining of a lot of low back pain, which he has had for years. PHYSICAL EXAMINATION: VITAL SIGNS: Unremarkable. He has a blood pressure of 150/93 with a pulse of 65. GENERAL: He appeared to be dehydrated. CHEST: Clear. CARDIAC: Normal. ABDOMEN: Soft and nontender. IMPRESSION: 1. Acute alcohol intoxication. 2. Chronic alcoholism. 3. Impending delirium tremens. 4. Low back pain. PLAN: Continue with current regimen for at least another 24 hours. MMODL / IJN: [id number] /
[2022-08-03] MEDS: SODIUM CHLORIDE 0.9% 1,000 ML IV SCH ×4 (02:03→22:57)
[2022-08-03] MEDS: THIAMINE 100 MG TAB PO SCH (09:58)
[2022-08-04] MEDS: SODIUM CHLORIDE 0.9% 1,000 ML IV SCH ×2 (06:18→21:23)
[2022-08-04] MEDS: THIAMINE 100 MG TAB PO SCH (08:54)
[2022-08-05] MEDS: SODIUM CHLORIDE 0.9% 1,000 ML IV SCH ×3 (01:33→15:12)
[2022-08-05 08:24] VITALS: RESP 18
[2022-08-05] MEDS: THIAMINE 100 MG TAB PO SCH (09:12)
[2022-08-05 13:11] VITALS: BP 160/95; PULSE 57; TEMP 98.4
--- NOTE | 2022-08-07 22:47 | DS ---
DISCHARGE SUMMARY CHIEF COMPLAINT: Acute alcohol intoxication and DTs. HISTORY OF PRESENT ILLNESS AND PHYSICAL EXAMINATION: Details of this man's history and physical can be found in the initial workup. COURSE IN THE HOSPITAL: After admission, he was placed on bedrest, started on intravenous fluids and placed on CIWA protocol. He did well. He did not go into florid DTs. He improved and it was felt that he could be discharged, but he had no place to go. Child Abuse Worker were involved in his discharge planning and eventually was able to leave on the . He will go home on usual activity and diet. He will be followed up in the office. FINAL DIAGNOSES: 1. Acute alcohol intoxication. 2. Chronic alcoholism. 3. Delirium tremens. 4. Chronic low back pain from osteoarthritis. OPERATIONS: None. CONSULTATIONS: None. He is improved. MMODL / HIWOTN: [id number] /
--- NOTE | 2022-08-08 02:02 | PN ---
PROGRESS NOTE DATE OF SERVICE: 08/04/2022 CHIEF COMPLAINT: Acute alcohol intoxication and DTs. HISTORY OF PRESENT ILLNESS: This gentleman is doing fairly well and he is stable. Vital signs are normal. He has not had any significant problems so far with DTs. PHYSICAL EXAMINATION: VITAL SIGNS: Normal. CHEST: Clear. CARDIAC: Normal. ABDOMEN: Soft, nontender. IMPRESSION: Acute alcohol intoxication and chronic alcoholism with delirium tremens. PLAN: Continue with [facility] protocol and monitoring of his vital signs. MMODL / IJN: [id number] /
--- NOTE | 2022-08-08 02:41 | PN ---
PROGRESS NOTE DATE OF SERVICE: 08/03/2022 CHIEF COMPLAINT: Acute alcohol intoxication, DTs. HISTORY OF PRESENT ILLNESS: This gentleman seems to be doing fairly well and we may be able to discharge him. Unfortunately, he is homeless and does not have a place to go and he will be referred to [facility]. PHYSICAL EXAMINATION: CHEST: Clear. CARDIAC: Normal. ABDOMEN: Soft, nontender without visceromegaly, or masses. IMPRESSION: 1. Acute alcohol intoxication. 2. Delirium Tremens. PLAN: [facility] consult. MMODL / IJN: [id number] /
== END 2022-08-05 16:20 | disposition home or self-care (01) | DRG 897 ==
LOC: EC 01:06 → 6NMEDSUR 02:12 → OBSVTOIN 09:31 → 5NMEDONC 11:01
PROVIDERS: ADMIT Family Medicine; ATTEND Family Medicine
PROC: HZ2ZZZZ Detoxification Services for Substance Abuse Treatment (ICD-10-PCS; principal; 2022-08-01)
DX: F10.229 Alcohol dependence with intoxication, unspecified (principal); F10.231 Alcohol dependence with withdrawal delirium; F32.A Depression, unspecified; G89.29 Other chronic pain; M47.9 Spondylosis, unspecified; M06.9 Rheumatoid arthritis, unspecified; Z87.891 Personal history of nicotine dependence; E87.6 Hypokalemia; E83.42 Hypomagnesemia; E86.0 Dehydration; Y90.8 Blood alcohol level of 240 mg/100 ml or more; Z71.41 Alcohol abuse counseling and surveillance of alcoholic; Z87.01 Personal history of pneumonia (recurrent)
CPT/HCPCS: 36415; 80053; 80320; 83690; 83735; 84100; 85025; 96372; 99285